=== PATIENT | male | born 1970 | race Caucasian/White ===

== ENCOUNTER 2016-10-03 10:23 | Observation (INO) | payer BC ==
--- NOTE | ~2016-10-03 | HP ---
History And Physical [address] [place]. [address] NAME: HARRY MOBLEY : 66 STATUS : ADM El PAT#: [id number] AGE: 46 ADM/REG DATE : 10/03/16 MR#: [id number] REPORT SERV DATE: 10/04/16 DICTATED BY: STEPHANIE SOTO DATE: 10/04/16 REPORT STATUS : Draft TRANSCRIBED BY: RAMEZ DATE: 10/04/16 DATE OF ADMISSION: 10/03/2016 SCALPING MACHINE OPERATOR: Raul Londono M.D. CHIEF COMPLAINT: One week of nausea, vomiting, and some diarrhea with associated chest pain. HISTORY OF PRESENT ILLNESS: A very pleasant 46-year-old gentleman with no known history of CAD, who states that over the past week, he has experienced episodes of nausea and vomiting. On 09/30/2016 in the evening, he experienced 10 hours of nausea and vomiting that eventually resolved, and with all of these episodes, he has had some associated chest pain. He thought his vomiting was related to food poisoning. 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 The patient states that on 10/03/2016 around 0100 hours, he awoke with five hours of diarrhea, again gastric and chest pain. He denies any shortness of breath, nausea, diaphoresis, or dizziness. He does report some belching. The chest pain has been persistent with the nausea and vomiting. There is no exertional component described. The patient denies any personal history of myocardial infarction, stroke, DVT, or pulmonary embolus. The patient denies any recent fever or chills. No palpitations. No syncopal episodes. Denies PND or orthopnea. Of note, the patient has been followed by Dr. Londono in the past for known hiatal hernia and esophageal dilatations for seemingly similar symptoms, but has not been seen in close to 10 years. PAST MEDICAL HISTORY: 1. GERD. 2. Denies hypertension, dyslipidemia, or diabetes. PAST SURGICAL HISTORY: Lymph node removed. SOCIAL HISTORY: He is with three children. 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 He walks daily for lunch a half mile to one mile without incident. Denies tobacco, alcohol, or illicits. FAMILY HISTORY: Mother with a history of "heart failure," remains alive in her mid 60s. REVIEW OF SYSTEMS: A 14-point review of systems performed, significant for HPI including snores per report with no formal sleep study and reported systolic blood pressures of 120 to 130. Otherwise, complete review of systems was obtained and negative. ALLERGIES: ALLERGY TO CODEINE AND DEMEROL. HOME MEDICATIONS: Tylenol p.r.n., Refresh drops p.r.n., Excedrin p.r.n., vitamin D 1000 History And Physical [address] [address] NAME: HARRY MOBLEY : 66 STATUS : ADM El PAT#: [id number] AGE: 46 ADM/REG DATE : 10/03/16 MR#: [id number] REPORT SERV DATE: 10/04/16 DICTATED BY: STEPHANIE SOTO DATE: 10/04/16 REPORT STATUS : Draft TRANSCRIBED BY: MODEllen DATE: 10/04/16 units daily, Nexium 20 mg daily, and multivitamin daily. PHYSICAL EXAMINATION: VITAL SIGNS: Blood pressure 123/67, pulse 61, respirations 18, temperature 98.2, and O2 saturation 95% on room air. Height 5 feet 10 inches, weight 250 pounds, and BMI of 36. GENERAL: Cooperative, in no apparent distress. HEENT: Pupils 2 mm, sclera nonicteric. Nares patent. Moist mucous membranes. No xanthelasma. NECK: Trachea midline, no thyromegaly. No JVD. No bruits. LYMPH: No cervical lymphadenopathy. No supraclavicular lymphadenopathy. RESPIRATORY: Unlabored respirations. Breath sounds clear bilaterally to posterior auscultation. No wheezes or rhonchi. CARDIOVASCULAR: Regular rate. No murmur, rub or gallop appreciated. Extremities without edema. Pulses 2+ bilaterally. ABDOMEN: Obese. Soft, nontender, nondistended, normal bowel sounds auscultated throughout. No organomegaly. Mild right upper quadrant tenderness on exam to deep palpation. SKIN: Warm, dry extremities. No pallor, or cyanosis. PSYCHIATRIC: Appropriate affect. Alert, oriented x3. LABORATORY DATA: Troponin less than 0.02 twice. Potassium 3.9, BUN 14, creatinine 0.94, glucose 89, and magnesium 2.1. Lipase 128. WBC 8.1, hemoglobin 16.8, hematocrit 47.2, and platelet count 238,000. EKG: Sinus rhythm. CT of the abdomen and pelvis, no acute process. No evidence of diverticulitis. ASSESSMENT AND PLAN: 1. Atypical chest pain. The patient has been observed in the CPOU overnight to rule out myocardial infarction with serial enzymes and serial EKGs and held n.p.o. We will proceed with exercise treadmill today, which may be converted to nuclear stress testing if warranted. The patient will be discharged home if low risk, no ischemia, to follow up with his PCP. If anything suggestive of ischemia, Cardiology referral will be initiated. 2. Nausea, vomiting, and diarrhea, all resolved. CT of the abdomen and pelvis is negative. Lipase 128. Recommend follow up with his PCP and re-established with Dr. Londono. We will attempt to facilitate appointment with Dr. Londono in one to two weeks. JIMMIE/MODL JOSE Sandy, [employer]INGER-BC / [id number] CC: Stephanie Soto MSN, [employer] Jessica Conway M.D.
[2016-10-03 10:21] LABS: BASOPHILS 0.2 %; BASOPHILS ABSOLUTE 0.02 10/3/uL (0.0-0.16); EOSINOPHILS 2.6 %; EOSINOPHILS ABSOLUTE 0.21 10/3/uL (0.0-0.53); ER CBC TAT 0 Hrs 10 Mins; HEMATOCRIT 47.2 % (40.0-51.0); HEMOGLOBIN 16.8 g/dL (13.6-17.8); IMMATURE GRANULOCYTES 0.4 %; IMMATURE GRANULOCYTES ABSOLUTE 0.03 10/3/uL (0.0-0.11); LYMPHOCYTES ABSOLUTE 2.11 10/3/uL (0.67-4.30); MEAN CORPUS HGB CONC 35.6 g/dL (32.0-36.0); MEAN CORPUSCULAR HEMOGLOB 32.7 pg (26.0-34.0); MEAN CORPUSCULAR VOLUME 91.8 fL (80-100); MEAN PLATELET VOLUME 9.9 fL (9.2-13.0); MONOCYTES 10.6 %; MONOCYTES ABSOLUTE 0.86 10/3/uL (0.21-1.20); NEUTROPHILS 60.2 %; NEUTROPHILS ABSOLUTE 4.88 10/3/uL (2.02-8.40); PLATELET COUNT 238 10/3/uL (150-400); RBC DISTRIBUTION WIDTH 12.7 % (12.0-16.0); RED CELL COUNT 5.14 10/6/uL (4.7-6.1); WHITE BLOOD CELLS 8.1 10/3/uL (4.5-10.5)
[2016-10-03 10:22] LABS: MANUAL DIFF NO %
[2016-10-03 10:28] LABS: INTERNATIONAL NORMAL RATI 1.1 UNITS (-); PARTIAL THROMBO TIME 28.6 SEC (22.5-37.2); PROTIME (NOT ORD) 13.6 SEC (12.0-14.5)
[2016-10-03 10:39] LABS: BUN (BLOOD UREA NITROGEN) 14 MG/DL (6-23); CALCIUM, SERUM 8.5 MG/DL (8.5-10.4); CHEST PAIN PROFILE TAT 0 Hrs 28 Mins; CHLORIDE, SERUM 105 MMOL/L (96-112); CO2 (CARBON DIOXIDE) 29 MMOL/L (24-34); CREATININE 0.94 MG/DL (0.70-1.30); GFR AFRICAN AMERICAN 111 ML/MIN (>=60); GFR NON AFRICAN AMERICAN 95 ML/MIN (>=60); GLUCOSE, SERUM 89 MG/DL (60-99); POTASSIUM, SERUM 3.9 MMOL/L (3.5-5.3); SODIUM, SERUM 142 MMOL/L (135-148); TROPONIN I <0.02 NG/ML (<0.05)
[2016-10-03] MEDS ORDERED: MULTIPLE VIT PO (14:52)
[2016-10-03] MEDS ORDERED: NEXIUM20 M1 PO (14:52)
[2016-10-03] MEDS ORDERED: EXCEDRIN EXTRA1 EACH PO (14:53)
[2016-10-03] MEDS ORDERED: ACET500CAP PO (14:54)
[2016-10-03] MEDS ORDERED: VICKS SINEX12 HR NAS (14:55)
[2016-10-03] MEDS ORDERED: VITAMIN D1000 UNI1 PO (14:56)
[2016-10-03] MEDS ORDERED: REFRESH OPH SO0.3 ML OPH (15:00)
== END 2016-10-04 12:01 | disposition home or self-care (01) ==
LOC: ER 10:23 → CDU1 14:31
PROVIDERS: Emergency Medicine
DX: R07.89 Other chest pain (principal); K21.9 Gastro-esophageal reflux disease without esophagitis; K44.9 Diaphragmatic hernia without obstruction or gangrene; I10 Essential (primary) hypertension; Z82.49 Family history of ischemic heart disease and other diseases of the circulatory system; Z88.5 Allergy status to narcotic agent; Z88.6 Allergy status to analgesic agent; Z98.890 Other specified postprocedural states; Z79.899 Other long term (current) drug therapy
CPT/HCPCS: 71010; 74177; 80048; 83690; 83735; 84484; 85025; 85610; 85730; 93005; 93017; 96374; 96375; 99285; A9270-GY; G0378; J2405; Q9967